=== PATIENT | female | born 1930 | race Caucasian/White ===

== ENCOUNTER 2016-08-24 17:27 | Emergency (ER) | payer MEDICARE ==
--- NOTE | 2016-08-24 17:55 | ED ---
General Adult HPI - General Chief complaint: Fall Stated complaint: FALL, HEAD INJURY Time Seen by Provider: 08/24/16 17:45 Source: patient, RN notes reviewed Mode of arrival: wheelchair Limitations: no limitations - History of Present Illness Initial comments: Patient is an 86-year-old female who presents emergency room today with a chief complaint of a fall that occurred approximately 3 hours ago. Patient does admit that she was getting from the bed to the wheelchair when she slipped falling forward hitting her head. Does admit some abrasions to the forehead and the bridge of the nose. States there is no loss consciousness. Denies any headache. Denies any visual changes. Denies any other complaints or symptoms. Patient denies any recent fever, chills, shortness of breath, chest pain, back pain, abdominal pain, nausea or vomiting, numbness or tingling, dysuria or hematuria, constipation or diarrhea, headaches or visual changes, or any other complaints. - Related Data Home Medications Medication Instructions Recorded Confirmed Aspirin 81 mg PO DAILY 09/01/15 08/24/16 Multivitamins, Thera [Multivitamin] 1 tab PO DAILY 09/01/15 08/24/16 Alvarado-3 Fatty Acids/Fish Oil [Fish 1 cap PO DAILY 09/01/15 08/24/16 Oil 1,000 mg Softgel] amLODIPine [Norvasc] 10 mg PO DAILY 09/01/15 08/24/16 prednisoLONE ACETATE [Pred Forte 1 drop LEFT EYE HS 09/01/15 08/24/16 1%] Artificial Tears-Hypromellose 1 drop RIGHT EYE BID 10/16/15 08/24/16 [Artificial Tear Drops] Calcium Carbonate [Calcium] 600 mg PO DAILY 10/16/15 08/24/16 Cholecalciferol [Vitamin D3] 2,000 unit PO DAILY 10/16/15 08/24/16 DULoxetine HCL [Cymbalta] 20 mg PO DAILY 10/16/15 08/24/16 Docusate [Colace] 100 mg PO Q48H 10/16/15 08/24/16 Metoprolol Succinate (ER) [Toprol 25 mg PO DAILY 10/16/15 08/24/16 XL] Acetaminophen Tab [Tylenol Tab] 325 mg PO Q6H PRN 11/03/15 08/24/16 Carbidopa-Levodopa 25-100 mg 1 tab PO TID 05/14/16 08/24/16 [Sinemet 25-100] Donepezil [Aricept] 5 mg PO HS 05/14/16 08/24/16 Megestrol Acetate 10 mg PO DAILY 05/14/16 08/24/16 Nystatin 100,000 Unit/gm Powd 1 applic TOPICAL DAILY PRN 05/14/16 08/24/16 [Mycostatin Powder] Previous Rx's Medication Instructions Recorded Lisinopril [Zestril] 5 mg PO DAILY #30 tab 09/03/15 Pantoprazole [Protonix] 40 mg PO DAILY tablet. 10/21/15 Bacitracin Oint 28.4 gm TOPICAL BID #1 tube 08/24/16 Allergies Allergy/AdvReac Type Severity Reaction Status Date / Time No Known Allergies Allergy Verified 08/24/16 18:02 Review of Systems ROS Statement: Those systems with pertinent positive or pertinent negative responses have been documented in the HPI. ROS Other: All systems not noted in ROS Statement are negative. Past Medical History Past Medical History: Eye Disorder, Hypertension, Osteoarthritis (OA), Skin Disorder Additional Past Medical History / Comment(s): SPONDYLOSIS, LEFT RETINAL DETATCHMENT, EPIDURAL STEROIDAL INJECTIONS, MITRAL VAVLE PROLAPSE, OSTEOARTRITIS , PSORASIS, holter monitor since 09/22/2015 - PTS DAUGHTER STATES IT WAS PLACED SECONDARY TO FREQ FALLS AND THAT SHE HAD A SHORT BURST OF AFIB WHILE IN THE [facility]CTORS OFFICE. History of Any Multi-Drug Resistant Organisms: None Reported Additional Past Surgical History / Comment(s): LEFT CORNEA TRANSPLANT, ROMAN CATARACT, STEROID INJECTIONS TO LOWER BACK CERVICAL SPINE Past Anesthesia/Blood Transfusion Reactions: No Reported Reaction Past Psychological History: Anxiety, Depression Smoking Status: Former smoker Past Alcohol Use History: None Reported Past Drug Use History: None Reported - Past Family History Father History Unknown: Yes Family Medical History: CVA/TIA, Hypertension General Exam - General Exam Comments Initial Comments: General: The patient is awake and alert, in no distress, and does not appear acutely ill. Eye: Abnormal appearance of the left pupil (not a new finding) extra-ocular movements are intact. No nystagmus. There is normal conjunctiva bilaterally. No signs of icterus. Ears, nose, mouth and throat: There are moist mucous membranes and no oral lesions. Neck: The neck is supple, there is no tenderness or JVD. Cardiovascular: There is a regular rate and rhythm. No murmur, rub or gallop is appreciated. Respiratory: Lungs are clear to auscultation, respirations are non-labored, breath sounds are equal. No wheezes, stridor, rales, or rhonchi. Gastrointestinal: [Soft, non-distended, non-tender abdomen without masses or organomegaly noted. There is no rebound or guarding present. No CVA tenderness. Bowel sounds are unremarkable.] Musculoskeletal: Normal ROM, no tenderness. Strength 5/5. Sensation intact. Pulses equal bilaterally 2+. Neurological: A&O x 3. CN II-XII intact, There are no obvious motor or sensory deficits. Coordination appears grossly intact. Speech is normal. Skin: Mild abrasion to the top of forehead and bridge of her nose. No deep tissue involvement. No bleeding. Psychiatric: Cooperative, appropriate mood & affect, normal judgment. Limitations: no limitations Course Vital Signs 08/24/16 17:34 Temperature 97.9 F Pulse Rate 122 H Respiratory 20 Rate Blood Pressure 190/79 O2 Sat by Pulse 93 L Oximetry Medical Decision Making - Medical Decision Making Patient's CT negative for any acute abnormalities. Results were discussed with the patient. Patient will be discharged home. Small amount of bacitracin placed over the abrasions. Disposition Clinical Impression: Fall, Abrasion Disposition: HOME SELF-CARE Condition: Good Instructions: Abrasion (ED) Additional Instructions: Please use medication as discussed. Please follow-up with family doctor in the next 2 days of symptoms have not improved. Please return to emergency room if the symptoms increase or worsen or for any other concerns. Prescriptions: Bacitracin Oint 28.4 gm TOPICAL BID #1 tube Time of Disposition: 18:25
--- NOTE | 2016-08-24 18:19 | CT ---
EXAMINATION TYPE: CT brain wo con DATE OF EXAM: 08/24/2016 6:13 PM COMPARISON: 10/16/2015 HISTORY: Fall today. CT DLP: 897.20 mGycm Automated exposure control for dose reduction was used. FINDINGS: There is cerebral cortical atrophy. There is patchy hypodensity in the periventricular white matter. There is no mass effect nor midline shift. There is no sign of intracranial hemorrhage. The calvarium is intact. IMPRESSION: Cerebral atrophy and chronic small vessel ischemia. No acute intracranial abnormality. No change.
[2016-08-24] MEDS ORDERED: LISINOPRIL 5 MG TAB PO STA (18:44)
[2016-08-24 18:55] VITALS: BP 185/79; PULSE 60; RESP 18; TEMP 98.2
== END 2016-08-24 18:55 | disposition home or self-care (01) ==
LOC: EC 17:27
DX: S00.91XA Abrasion of unspecified part of head, initial encounter (principal); S00.31XA Abrasion of nose, initial encounter; I10 Essential (primary) hypertension; M19.90 Unspecified osteoarthritis, unspecified site; L40.9 Psoriasis, unspecified; F41.9 Anxiety disorder, unspecified; F32.9 Major depressive disorder, single episode, unspecified; Z87.891 Personal history of nicotine dependence; Z79.82 Long term (current) use of aspirin; W01.10XA Fall on same level from slipping, tripping and stumbling with subsequent striking against unspecified object, initial encounter; Y92.009 Unspecified place in unspecified non-institutional (private) residence as the place of occurrence of the external cause
CPT/HCPCS: 70450; 99284

== ENCOUNTER → 2016-10-07 | Outpatient (CLI) | payer MEDICARE ==
--- NOTE | 2016-10-07 14:29 | CT ---
EXAMINATION TYPE: CT brain wo con DATE OF EXAM: 10/07/2016 2:25 PM COMPARISON: 08/24/2016 HISTORY: amnesia, multiple recent falls CT DLP: [address] of the brain was performed. The ventricles, basal cisterns and sulci overlying the cerebral convexities demonstrate mild enlargem ent. There is no evidence for intracranial hemorrhage or sulcal effacement. There is decreased attenuation about the periventricular white matter and deep white matter of both c erebral hemispheres, compatible with chronic small vessel ischemia. Differential diagnosis does inclu de demyelination. No mass effects are seen.No midline shift. Osseous calvarium is intact. If symptoms persist consider MRI. IMPRESSION: 1. Age related atrophic and chronic small vessel ischemic change without acute intracranial process s een at this time.
== END | disposition home or self-care (01) ==
LOC: RADCTMAIN 13:22
PROVIDERS: ATTEND Internal Medicine Hematology & Oncology
DX: G31.9 Degenerative disease of nervous system, unspecified (principal); I67.82 Cerebral ischemia
CPT/HCPCS: 70450

== ENCOUNTER 2016-11-09 14:10 | Observation (INO) | payer MEDICARE ==
[2016-11-09] MEDS ORDERED: NITROGLYCERIN OINT 1 INCH/GM PACKET TOPICAL STA (14:41)
[2016-11-09] MEDS ORDERED: ASPIRIN 81 MG CHEW PO STA (14:41)
--- NOTE | 2016-11-09 14:43 | ED ---
General Adult HPI - General Chief complaint: Chest Pain Stated complaint: Chest Pain Time Seen by Provider: 11/09/16 14:21 Source: patient, family, RN notes reviewed Mode of arrival: wheelchair Limitations: altered mental status, physical limitation - History of Present Illness Initial comments: Patient is a pleasant 86-year-old female presenting to the emergency department with reported chest discomfort. Daughter received a call today stating patient was complaining of heaviness in her chest. Patient also complained of some yesterday. Patient does not recall this however does have memory problems. Patient is symptom-free at this time. Further history is lacking regarding her symptoms. - Related Data Home Medications Medication Instructions Recorded Confirmed Aspirin 81 mg PO HS 09/01/15 11/09/16 Multivitamins, Thera [Multivitamin 1 tab PO DAILY@1300 09/01/15 11/09/16 (formulary)] Cantril-3 Fatty Acids/Fish Oil [Fish 1 cap PO DAILY 09/01/15 11/09/16 Oil 1,000 mg Softgel] amLODIPine [Norvasc] 10 mg PO DAILY 09/01/15 11/09/16 Artificial Tears-Hypromellose 1 drop RIGHT EYE BID 10/16/15 11/09/16 [Artificial Tear Drops] Calcium Carbonate [Calcium] 600 mg PO DAILY 10/16/15 11/09/16 Cholecalciferol [Vitamin D3] 2,000 unit PO DAILY 10/16/15 11/09/16 DULoxetine HCL [Cymbalta] 20 mg PO DAILY 10/16/15 11/09/16 Docusate [Colace] 100 mg PO Q48H 10/16/15 11/09/16 Metoprolol Succinate (ER) [Toprol 25 mg PO DAILY 10/16/15 11/09/16 XL] Acetaminophen Tab [Tylenol Tab] 325 mg PO Q6H PRN 11/03/15 11/09/16 Carbidopa-Levodopa 25-100 mg 1 tab PO TID 05/14/16 11/09/16 [Sinemet 25-100] Donepezil [Aricept] 5 mg PO HS 05/14/16 11/09/16 Megestrol Acetate 10 mg PO DAILY 05/14/16 11/09/16 Nystatin 100,000 Unit/gm Powd 1 applic TOPICAL DAILY PRN 05/14/16 11/09/16 [Mycostatin Powder] Bacitracin Oint 1 applic TOPICAL BID 11/09/16 11/09/16 Lisinopril [Zestril] 5 mg PO HS 11/09/16 11/09/16 Previous Rx's Medication Instructions Recorded Pantoprazole [Protonix] 40 mg PO DAILY tablet. 10/21/15 Allergies Allergy/AdvReac Type Severity Reaction Status Date / Time No Known Allergies Allergy Verified 11/09/16 14:51 Review of Systems ROS Statement: Those systems with pertinent positive or pertinent negative responses have been documented in the HPI. ROS Other: All systems not noted in ROS Statement are negative. Constitutional: Denies: fever, chills Eyes: Denies: eye pain ENT: Denies: ear pain Respiratory: Denies: cough Cardiovascular: Reports: chest pain Endocrine: Denies: fatigue Gastrointestinal: Denies: abdominal pain Genitourinary: Denies: dysuria Skin: Denies: rash Neurological: Denies: weakness Past Medical History Past Medical History: Eye Disorder, Hypertension, Osteoarthritis (OA), Skin Disorder Additional Past Medical History / Comment(s): SPONDYLOSIS, LEFT RETINAL DETATCHMENT, EPIDURAL STEROIDAL INJECTIONS, MITRAL VAVLE PROLAPSE, OSTEOARTRITIS , PSORASIS, holter monitor since 09/22/2015 - PTS DAUGHTER STATES IT WAS PLACED SECONDARY TO FREQ FALLS AND THAT SHE HAD A SHORT BURST OF AFIB WHILE IN THE [facility]CTORS OFFICE. Parkinsons. History of Any Multi-Drug Resistant Organisms: None Reported Additional Past Surgical History / Comment(s): LEFT CORNEA TRANSPLANT, ROMAN CATARACT, STEROID INJECTIONS TO LOWER BACK CERVICAL SPINE Past Anesthesia/Blood Transfusion Reactions: No Reported Reaction Past Psychological History: Anxiety, Depression Smoking Status: Former smoker Past Alcohol Use History: None Reported Past Drug Use History: None Reported - Past Family History Father History Unknown: Yes Family Medical History: CVA/TIA, Hypertension General Exam Limitations: physical limitation General appearance: alert, in no apparent distress Head exam: Present: atraumatic Eye exam: Present: normal appearance, PERRL ENT exam: Present: normal oropharynx Neck exam: Present: normal inspection Respiratory exam: Present: normal lung sounds bilaterally. Absent: chest wall tenderness Cardiovascular Exam: Present: irregular rhythm Expanded Peripheral pulses: 2+: Radial (R), Radial (L), Dorsalis Pedis (R), Dorsalis Pedis (L) GI/Abdominal exam: Present: soft. Absent: tenderness Extremities exam: Present: normal inspection. Absent: pedal edema, calf tenderness Neurological exam: Present: alert Psychiatric exam: Present: normal affect, normal mood Skin exam: Present: normal color Course Vital Signs 11/09/16 11/09/16 14:13 15:48 Temperature 98.7 F Pulse Rate 63 60 Respiratory 16 16 Rate Blood Pressure 157/70 155/90 O2 Sat by Pulse 100 94 L Oximetry EKG Findings - EKG Comments: EKG Findings:: A. fib with rate of 81. QRS 80. QT 366. QTc 425. Normal axis. Normal QRS. Normal ST-T. Medical Decision Making - Medical Decision Making Patient reevaluated and resting comfortably in bed. Symptoms. This time. Patient and family were updated on results and plan. Case was discussed with practitioner Stacie, working with Dr. calzada, who will admit for Dr. Carney. - Lab Data Result diagrams: 11/09/16 15:15 11/09/16 15:15 Lab Results 11/09/16 11/09/16 11/09/16 Range/Units 15:15 15:15 15:15 WBC 8.6 (3.8-10.6) k/uL RBC 3.50 L (3.80-5.40) m/uL Hgb 11.7 (11.4-16.0) gm/dL Hct 34.5 (34.0-46.0) % MCV 98.4 (80.0-100.0) fL MCH 33.4 (25.0-35.0) pg MCHC 33.9 (31.0-37.0) g/dL RDW 13.0 (11.5-15.5) % Plt Count 186 (150-450) k/uL Neutrophils % 80 % Lymphocytes % 13 % Monocytes % 4 % Eosinophils % 2 % Basophils % 1 % Neutrophils # 6.8 (1.3-7.7) k/uL Lymphocytes # 1.1 (1.0-4.8) k/uL Monocytes # 0.4 (0-1.0) k/uL Eosinophils # 0.1 (0-0.7) k/uL Basophils # 0.1 (0-0.2) k/uL PT (9.0-12.0) sec INR (<1.1) APTT (22.0-30.0) sec Sodium 139 (137-145) mmol/L Potassium 4.8 (3.5-5.1) mmol/L Chloride 109 H (98-107) mmol/L Carbon Dioxide 20 L (22-30) mmol/L Anion Gap 10 mmol/L BUN 22 H (7-17) mg/dL Creatinine 1.12 H (0.52-1.04) mg/dL Est GFR (MDRD) Af Amer 56 (>60 ml/min/1.73 sqM) Est GFR (MDRD) Non-Af 46 (>60 ml/min/1.73 sqM) Glucose 88 (74-99) mg/dL Calcium 9.9 (8.4-10.2) mg/dL Magnesium 2.0 (1.6-2.3) mg/dL Total Bilirubin 0.7 (0.2-1.3) mg/dL AST 26 (14-36) U/L ALT 17 (9-52) U/L Alkaline Phosphatase 59 (38-126) U/L Total Creatine Kinase 58 (30-135) U/L CK-MB (CK-2) 1.2 (0.0-2.4) ng/mL CK-MB (CK-2) Rel Index 2.1 Troponin I <0.012 (0.000-0.034) ng/mL Total Protein 6.9 (6.3-8.2) g/dL Albumin 4.0 (3.5-5.0) g/dL 11/09/16 Range/Units 15:15 WBC (3.8-10.6) k/uL RBC (3.80-5.40) m/uL Hgb (11.4-16.0) gm/dL Hct (34.0-46.0) % MCV (80.0-100.0) fL MCH (25.0-35.0) pg MCHC (31.0-37.0) g/dL RDW (11.5-15.5) % Plt Count (150-450) k/uL Neutrophils % % Lymphocytes % % Monocytes % % Eosinophils % % Basophils % % Neutrophils # (1.3-7.7) k/uL Lymphocytes # (1.0-4.8) k/uL Monocytes # (0-1.0) k/uL Eosinophils # (0-0.7) k/uL Basophils # (0-0.2) k/uL PT 11.7 (9.0-12.0) sec INR 1.2 (<1.1) APTT 20.4 L (22.0-30.0) sec Sodium (137-145) mmol/L Potassium (3.5-5.1) mmol/L Chloride (98-107) mmol/L Carbon Dioxide (22-30) mmol/L Anion Gap mmol/L BUN (7-17) mg/dL Creatinine (0.52-1.04) mg/dL Est GFR (MDRD) Af Amer (>60 ml/min/1.73 sqM) Est GFR (MDRD) Non-Af (>60 ml/min/1.73 sqM) Glucose (74-99) mg/dL Calcium (8.4-10.2) mg/dL Magnesium (1.6-2.3) mg/dL Total Bilirubin (0.2-1.3) mg/dL AST (14-36) U/L ALT (9-52) U/L Alkaline Phosphatase (38-126) U/L Total Creatine Kinase (30-135) U/L CK-MB (CK-2) (0.0-2.4) ng/mL CK-MB (CK-2) Rel Index Troponin I (0.000-0.034) ng/mL Total Protein (6.3-8.2) g/dL Albumin (3.5-5.0) g/dL - Radiology Data Radiology results: image reviewed (Chest x-ray shows no acute process) Disposition Clinical Impression: Chest pain Disposition: ADMITTED IP TO THIS [facility] Referrals: Joe Carney MD [Primary Care Provider] - 1-2 days Time of Disposition: 16:28
[2016-11-09 15:23] LABS: Basophils # (A) 0.1 k/uL (0-0.2); Basophils % (A) 1 %; CH 32.5; CHCM 33.1; Eosinophils # (A) 0.1 k/uL (0-0.7); Eosinophils % (A) 2 %; HCT 34.5 % (34.0-46.0); HDW 2.15; HGB 11.7 gm/dL (11.4-16.0); Luc # (Auto) 0.11; Luc % (Auto) 1; Lymphocytes # (A) 1.1 k/uL (1.0-4.8); Lymphocytes % (A) 13 %; MCH 33.4 pg (25.0-35.0); MCHC 33.9 g/dL (31.0-37.0); MCV 98.4 fL (80.0-100.0); Mean Platelet Volume 6.9; Monocytes # (A) 0.4 k/uL (0-1.0); Monocytes % (A) 4 %; Neutrophils # (A) 6.8 k/uL (1.3-7.7); Neutrophils % (A) 80 %; WBC 8.6 k/uL (3.8-10.6); WBC (Perox) 8.14
[2016-11-09 15:31] LABS: Calcium 9.9 mg/dL (8.4-10.2); Potassium 4.8 mmol/L (3.5-5.1); Total Bilirubin 0.7 mg/dL (0.2-1.3); Total Protein 6.9 g/dL (6.3-8.2)
[2016-11-09 15:43] LABS: INR 1.2 (<1.1); Prothrombin Time 11.7 sec (9.0-12.0)
[2016-11-09 15:46] LABS: Partial Thromboplastin Time 20.4 sec (22.0-30.0)
[2016-11-09 15:48] LABS: Creatine Kinase 58 U/L (30-135)
[2016-11-09 16:01] LABS: Creatine Kinase MB 1.2 ng/mL (0.0-2.4); Troponin I <0.012 ng/mL (0.000-0.034)
--- NOTE | 2016-11-09 16:03 | XR ---
EXAMINATION TYPE: XR chest 2V DATE OF EXAM: 10/16/2015 COMPARISON: 10/24/2015 INDICATION: Chest pain TECHNIQUE: 2 view chest x-ray FINDINGS: The heart size is normal. The pulmonary vasculature is normal. The lungs are clear. IMPRESSION: 1. No acute pulmonary process.
[2016-11-09] MEDS ORDERED: NITROGLYCERIN SL TABS 0.4 MG TAB SUBLINGUAL PRN (16:47)
[2016-11-09] MEDS ORDERED: PANTOPRAZOLE 40 MG TABLET PO STA (20:48)
[2016-11-09] MEDS ORDERED: NYSTATIN 100,000 UNIT/GM OINT 30 GM TUBE TOPICAL PRN (20:53)
[2016-11-09] MEDS ORDERED: METOPROLOL SUCCINATE (ER) 25 MG TAB.ER.24H PO STA (20:56)
[2016-11-09] MEDS ORDERED: DONEPEZIL 5 MG TAB PO SCH (21:00)
[2016-11-09] MEDS ORDERED: DOCUSATE 100 MG CAP PO PRN (21:02)
[2016-11-09] MEDS ORDERED: ACETAMINOPHEN TAB 325 MG TAB PO PRN (21:04)
[2016-11-09 21:50] LABS: Creatine Kinase 57 U/L (30-135)
[2016-11-09 22:03] LABS: Creatine Kinase MB 1.2 ng/mL (0.0-2.4); Troponin I <0.012 ng/mL (0.000-0.034)
[2016-11-09 22:29] VITALS: BMI 20.9
[2016-11-09 22:43] VITALS: RESP 16
[2016-11-09] MEDS: CARBIDOPA-LEVODOPA 25-100 MG 1 EACH TAB PO SCH (23:30)
[2016-11-09] MEDS: NITROGLYCERIN OINT 1 INCH/GM PACKET TOPICAL SCH (23:37)
[2016-11-10 03:19] LABS: Creatine Kinase 63 U/L (30-135)
[2016-11-10 03:32] LABS: Troponin I <0.012 ng/mL (0.000-0.034)
[2016-11-10 03:38] LABS: Cholesterol 156 mg/dL (<200); HDL Cholesterol 52 mg/dL (40-60); Triglycerides 82 mg/dL (<150)
[2016-11-10] MEDS: NITROGLYCERIN OINT 1 INCH/GM PACKET TOPICAL SCH (06:20)
[2016-11-10] MEDS ORDERED: CALCIUM CARBONATE 500 MG CHEWABLE PO SCH ×2 (09:00→12:00)
[2016-11-10] MEDS ORDERED: MEGESTROL 400 MG/10 ML CUP PO SCH (09:00)
[2016-11-10] MEDS ORDERED: amLODIPine 10 MG TAB PO SCH (09:00)
[2016-11-10] MEDS ORDERED: DULoxetine HCL 20 MG CAPSULE.DR PO SCH (09:00)
[2016-11-10] MEDS ORDERED: MEGESTROL 40 MG TAB PO SCH (09:00)
[2016-11-10] MEDS ORDERED: ASPIRIN 325 MG TAB PO SCH (09:00)
[2016-11-10] MEDS ORDERED: BACITRACIN 500 UNIT/GM OINT 28.4 GM TUBE TOPICAL SCH (09:00)
[2016-11-10] MEDS ORDERED: PANTOPRAZOLE 40 MG TABLET PO SCH (09:00)
[2016-11-10] MEDS ORDERED: ARTIFICIAL TEARS-HYPROMELLOSE DROPS 15 ML BTL RIGHT EYE SCH (09:00)
[2016-11-10] MEDS ORDERED: METOPROLOL SUCCINATE (ER) 25 MG TAB.ER.24H PO SCH (09:00)
--- NOTE | 2016-11-10 10:34 | CONS ---
DATE OF CONSULTATION: An 86-year-old female who started complaining of discomfort in the chest on Thursday. The discomfort was off and on and she told her daughter and was brought into the hospital yesterday. Today she feels fine. When she was having the discomfort, she denied any shortness of breath, any dizziness, lightheadedness or palpitations. A 12-lead ECG shows a short burst of atrial tachycardia. No ST segment abnormalities. Medication list includes Zestril, Megestrol, Sinemet, metoprolol succinate, amlodipine. ALLERGIES: No known drug allergies. REVIEW OF SYSTEMS: No fever, chills, rigors. No cough or expectoration. No nausea, vomiting and diarrhea. No hematuria or dysuria. No strokes or seizures. No skin lesions. Past history of hypertension, retinal detachment and short bursts of atrial fibrillation. We have documented a short burst of atrial tachycardia on 12-lead ECG. On examination, her admission blood pressure was 132/53 mmHg and later her blood pressure was normal. This morning, her blood pressure 160/68 mm Hg. she is on antihypertensive therapy. Heart rate is in the 50s and she is on metoprolol. Her temperature is 99 degrees Fahrenheit. Head and neck examination are normal. No JVD. No thyromegaly. HEART SOUNDS: The systolic murmur is audible. Breath sounds are reduced bilaterally, poor air entry due to reduced inspiratory effort but she is comfortable for a respiratory standpoint, there is no respiratory distress. Abdomen is soft, nontender. Extremities are warm. A 12 Lead ECG as above. IMPRESSION: 1. Patient admitted with recurrent chest discomfort with normal cardiac enzymes. No ST segment abnormalities. 2. This is an 86-year-old female with Parkinson's. She also has hypertension and is on antihypertensive therapy. She has short bursts of atrial fibrillation. Suggest baby aspirin and start atorvastatin 20 mg p.o. daily and a 2-D echo and Doppler study. She has not had an acute myocardial infarction. Medical management for chest discomfort and 2-D echo also to assess her pericardium and valvular structures. A chest x-ray did not show any active pulmonary process. Her temperature is 99 degrees Fahrenheit. This will be addressed by her medical doctors.
[2016-11-10] MEDS: CARBIDOPA-LEVODOPA 25-100 MG 1 EACH TAB PO SCH ×2 (10:56→15:49)
[2016-11-10] MEDS ORDERED: CHOLECALCIFEROL 1,000 UNIT TAB PO SCH (12:00)
[2016-11-10] MEDS ORDERED: MULTIVITAMINS, THERA 1 EACH TAB PO SCH (13:00)
[2016-11-10 15:17] VITALS: BP 148/75; PULSE 59; TEMP 99
[2016-11-10] MEDS ORDERED: ISOSORBIDE MONONITRATE ER 30 MG TAB.ER.24H PO SCH (16:00)
[2016-11-10] MEDS ORDERED: LISINOPRIL 5 MG TAB PO SCH (21:00)
--- NOTE | 2016-11-10 22:19 | HP ---
DATE OF ADMISSION: 11/09/2016 PRESENTING COMPLAINT: Chest pain. HISTORY OF PRESENTING COMPLAINT: This is an 86-year-old patient of Dr. Carney whose chronic stable medical conditions include atrial fibrillation, hard of hearing, osteoarthritis, mitral valve prolapse, Parkinson's, dementia, hypertension, depression. Patient is not the best of historians. She states she has had some central chest pressure for 3 to 4 days off and on, not sure if related to exertion, some shortness of breath. No perspiration. No radiation. Variable duration. Patient does use a walker to get about. Hence admitted for the same. REVIEW OF SYSTEMS: CONSTITUTIONAL: Tired. HEENT: Decreased hearing. RESPIRATORY: As above. CARDIOVASCULAR: As above. GASTROINTESTINAL: None. GENITOURINARY: None. MUSCULOSKELETAL: Aches and pains in multiple joints. DERMATOLOGICAL: Some bruising. HEMATOLOGICAL: None. LYMPHATIC: None. PSYCHIATRY: Forgetful. NEUROLOGICAL: Some tremors. PAST HISTORY: 1. Atrial fibrillation. 2. Hard of hearing. 3. Osteoarthritis. 4. Mitral valve prolapse. 5. Psoriasis. 6. Parkinson's disease. 7. Hypertension. 8. Dementia. 9. Depression. PAST SURGICAL HISTORY: 1. Left cornea transplant. 2. Bilateral cataracts. 3. Steroid injection at the lower back and cervical spine. SOCIAL HISTORY: Patient did smoke in the past. Does use a walker. Lives with family. FAMILY HISTORY: Stroke and hypertension. HOME MEDICATIONS: 1. Norvasc 10 mg p.o. daily. 2. Protonix 40 mg p.o. daily. 3. Fish oil 1 capsule p.o. daily. 4. Mycostatin topical application daily p.r.n. 5. Multivitamin 1 tablet p.o. daily. 6. Toprol XL 25 mg p.o. daily. 7. Megestrol 10 mg p.o. daily. 8. Zestril ( ) mg p.o. at bedtime. 9. Aricept 5 mg p.o. at bedtime. 10. Colace 100 mg p.o. q.48 hours. 11. Cymbalta 20 mg p.o. daily. 12. Vitamin D3 2000 units p.o. daily. 13. Sinemet 25/100 one tablet p.o. t.i.d. 14. Calcium 600 mg p.o. daily. 15. Bacitracin application topically b.i.d. 16. Aspirin 81 mg at bedtime. 17. Artificial Tears 1 drop to right eye b.i.d. PHYSICAL EXAMINATION: VITAL SIGNS ON PRESENTATION: Temperature 98.7, pulse 63, respiration 16, blood pressure 127/70, pulse ox 100% on room air. GENERAL APPEARANCE: Average build. Lying in bed. Not in distress. EYES: Pupils equal. Conjunctivae normal. HEENT: External appearance of nose and ears normal. Oral cavity normal. NECK: JVD not raised. Mass not palpable. RESPIRATORY: Effort normal. Lungs are clear. CARDIOVASCULAR: First and second sounds normal. No edema. ABDOMEN: Soft, non-tender. Liver and spleen not palpable. LYMPHATIC: No lymph node palpable in neck or axillae. PSYCHIATRY: Alert and oriented. Mood and affect slightly flat. NEUROLOGICAL: Slow to move. MUSCULOSKELETAL: Evidence of osteoarthritis in multiple joints, including the hands and knees. INVESTIGATIONS: White count 8.6, hemoglobin 11.7. Potassium 4.8. BUN 22, creatinine 1.12. Troponin x3 negative. EKG showing atrial fibrillation, rate controlled. ASSESSMENT: 1. Chest pain in an elderly patient whose cardiac risk factors include her age, hypertension. Pain is somewhat atypical, but cannot rule out underlying coronary artery disease. 2. Persistent atrial fibrillation, rate controlled. 3. Hard of hearing. 4. Primary osteoarthritis in multiple joints bilaterally. 5. Idiopathic Parkinson's disease. 6. Essential hypertension. 7. Alzheimer's dementia, late-onset type. PLAN: Cardiology is consulted. Home medications are resumed. Will give Lovenox for DVT prophylaxis. Blood pressure medications will be adjusted. Care was discussed with the patient. Will also add some nitrates.
[2016-11-11] MEDS ORDERED: ASPIRIN 81 MG CHEW PO SCH (09:00)
[2016-11-11] MEDS ORDERED: ATORVASTATIN 20 MG TAB PO SCH (09:00)
--- NOTE | 2016-12-12 20:03 | DS ---
DATE OF ADMISSION: 11/09/2016 DATE OF DISCHARGE: 11/10/2016 FINAL DIAGNOSES: 1. Left-anterior chest pain; could be musculoskeletal. 2. Persistent atrial fibrillation. 3. Hard of hearing. 4. Primary osteoarthritis of multiple joints bilaterally. 5. Idiopathic Parkinson's disease. 6. Essential hypertension. 7. Alzheimer's dementia, late-onset type. CONSULTATION: Dr. Ruben Servin. HOSPITAL COURSE: This patient presented with chest pain. Troponins were negative. Seen by Dr. Servin. Adjusted some medications. Otherwise doing okay to be discharged./ On exam, LUNGS: Slightly decreased breath sounds. CARDIOVASCULAR: First and second sounds normal. DISCHARGE MEDICATIONS: 1. Aspirin 81 mg q.h.s. 2. Multivitamin 1 tablet p.o. daily. 3. Fish oil 1000 mg p.o. daily. 4. Norvasc 10 mg daily. 5. Artificial tears one drop to right eye b.i.d. 6. Calcium ( ) milligrams p.o. daily. 7. Vitamin D3 2000 units p.o. daily. 8. Cymbalta 20 mg p.o. daily. 9. Colace 100 mg q.48 hours. 10. Toprol XL ER 25 mg daily. 11. Protonix 40 mg p.o. daily. 12. Tylenol 325 p.o. q6h p.r.n. 13. Sinemet 25/100, 1 tablet p.o. t.i.d. 14. Aricept 5 mg p.o. q.h.s. 15. Megestrol 10 mg p.o. daily. 16. Zestril 5 mg p.o. q.h.s. 17. Flagyl 500 mg p.o. q.i.d. Follow up with Dr. Servin in one week. Dr. Abdi in [address] Carney in two days.
== END 2016-11-10 19:25 | disposition home or self-care (01) ==
LOC: EC 14:10 → 3OBS 16:48
PROVIDERS: ADMIT Hospitalist; ATTEND Hospitalist
DX: R07.89 Other chest pain (principal); R41.82 Altered mental status, unspecified; I10 Essential (primary) hypertension; M15.9 Polyosteoarthritis, unspecified; M47.9 Spondylosis, unspecified; H33.22 Serous retinal detachment, left eye; L40.9 Psoriasis, unspecified; I48.1 Persistent atrial fibrillation; F32.9 Major depressive disorder, single episode, unspecified; G20 Parkinson's disease; I47.1 Supraventricular tachycardia; H91.90 Unspecified hearing loss, unspecified ear; G30.9 Alzheimer's disease, unspecified; F02.80 Dementia in other diseases classified elsewhere, unspecified severity, without behavioral disturbance, psychotic disturbance, mood disturbance, and anxiety; F41.9 Anxiety disorder, unspecified; Z79.899 Other long term (current) drug therapy; Z79.82 Long term (current) use of aspirin; Z82.49 Family history of ischemic heart disease and other diseases of the circulatory system; Z94.7 Corneal transplant status; Z91.81 History of falling; Z87.891 Personal history of nicotine dependence
CPT/HCPCS: 99285; 36415; 93005; 80061; 80053; 82550 ×2; 82553 ×2; 83735; 84484 ×2; 85025; 85610; 85730; 71020; G0378 ×2; S0179

== ENCOUNTER 2016-11-28 12:07 | Emergency (ER) | payer MEDICARE ==
[2016-11-28 12:16] VITALS: TEMP 98.2
[2016-11-28] MEDS ORDERED: SODIUM CHLORIDE 0.9% 1,000 ML IV STA (12:39)
--- NOTE | 2016-11-28 12:43 | ED ---
General Adult HPI - General Chief complaint: Recheck/Abnormal Lab/Rx Stated complaint: Positive C-Diff Time Seen by Provider: 11/28/16 12:32 Source: patient, family, RN notes reviewed Mode of arrival: wheelchair Limitations: no limitations, altered mental status - History of Present Illness Initial comments: Patient is a pleasant 86-year-old female presenting to the emergency Department with generalized weakness. Onset of symptoms was a few days ago. Patient has been having diarrhea for a few days, several times per day. No nausea or vomiting. No abdominal pain. Decreased appetite. Patient is requiring increased assistance, more than what is available at her assisted living. Patient states at [facility]. No fever. Patient was recently treated with antibiotics for urinary tract infection. Patient has a positive C. diff test results from yesterday. - Related Data Home Medications Medication Instructions Recorded Confirmed Aspirin 81 mg PO HS 09/01/15 11/28/16 Multivitamins, Thera [Multivitamin 1 tab PO DAILY@1300 09/01/15 11/28/16 (formulary)] [employer]-3 Fatty Acids/Fish Oil [Fish 1 cap PO DAILY@1300 09/01/15 11/28/16 Oil 1,000 mg Softgel] amLODIPine [Norvasc] 10 mg PO DAILY 09/01/15 11/28/16 Artificial Tears-Hypromellose 1 drop RIGHT EYE BID 10/16/15 11/28/16 [Artificial Tear Drops] Calcium Carbonate [Calcium] 600 mg PO DAILY 10/16/15 11/28/16 Cholecalciferol [Vitamin D3] 2,000 unit PO DAILY 10/16/15 11/28/16 DULoxetine HCL [Cymbalta] 20 mg PO DAILY 10/16/15 11/28/16 Docusate [Colace] 100 mg PO Q48H 10/16/15 11/28/16 Metoprolol Succinate (ER) [Toprol 25 mg PO DAILY 10/16/15 11/28/16 XL] Acetaminophen Tab [Tylenol] 325 mg PO Q6H PRN 11/03/15 11/28/16 Carbidopa-Levodopa 25-100 mg 1 tab PO TID@0730,1300,1930 05/14/16 11/28/16 [Sinemet 25-100 mg] Donepezil [Aricept] 5 mg PO HS 05/14/16 11/28/16 Megestrol Acetate 10 mg PO DAILY 05/14/16 11/28/16 Lisinopril [Zestril] 5 mg PO HS 11/09/16 11/28/16 Previous Rx's Medication Instructions Recorded Pantoprazole [Protonix] 40 mg PO DAILY tablet. 10/21/15 metroNIDAZOLE [Flagyl] 500 mg PO QID #56 tab 11/28/16 Allergies Allergy/AdvReac Type Severity Reaction Status Date / Time No Known Allergies Allergy Verified 11/28/16 13:56 Review of Systems ROS Statement: Those systems with pertinent positive or pertinent negative responses have been documented in the HPI. ROS Other: All systems not noted in ROS Statement are negative. Constitutional: Denies: fever Eyes: Denies: eye pain ENT: Denies: ear pain Respiratory: Denies: dyspnea Cardiovascular: Denies: chest pain Endocrine: Denies: fatigue Gastrointestinal: Reports: diarrhea. Denies: abdominal pain Genitourinary: Denies: urgency Musculoskeletal: Denies: as per HPI Skin: Denies: rash Neurological: Reports: weakness (Generalized) Past Medical History Past Medical History: Atrial Fibrillation, Eye Disorder, Hearing Disorder / Deafness, Hypertension, Memory Impairment, Neurologic Disorder, Osteoarthritis ( OA), Skin Disorder Additional Past Medical History / Comment(s): SPONDYLOSIS, LEFT RETINAL DETATCHMENT, EPIDURAL STEROIDAL INJECTIONS, MITRAL VAVLE PROLAPSE, OSTEOARTRITIS , PSORASIS, holter monitor since 09/22/2015 - PTS DAUGHTER STATES IT WAS PLACED SECONDARY TO FREQ FALLS AND THAT SHE HAD A SHORT BURST OF AFIB WHILE IN THE DOCTORS OFFICE. Parkinsons. History of Any Multi-Drug Resistant Organisms: None Reported Additional Past Surgical History / Comment(s): LEFT CORNEA TRANSPLANT, ROMAN CATARACT, STEROID INJECTIONS TO LOWER BACK CERVICAL SPINE Past Anesthesia/Blood Transfusion Reactions: No Reported Reaction Past Psychological History: Anxiety, Depression Smoking Status: Former smoker Past Alcohol Use History: None Reported Past Drug Use History: None Reported - Past Family History Father History Unknown: Yes Family Medical History: CVA/TIA, Hypertension General Exam Limitations: no limitations, altered mental status General appearance: alert, in no apparent distress Head exam: Present: atraumatic Eye exam: Present: normal appearance, PERRL ENT exam: Present: normal oropharynx Neck exam: Present: normal inspection Respiratory exam: Present: normal lung sounds bilaterally Cardiovascular Exam: Present: regular rate, normal rhythm GI/Abdominal exam: Present: soft. Absent: tenderness Extremities exam: Present: normal inspection Neurological exam: Present: alert, CN II-XII intact. Absent: motor sensory deficit Expanded Motor strength exam: RUE: 5, LUE: 5, RLE: 5, LLE: 5 Psychiatric exam: Present: normal affect, normal mood Skin exam: Present: normal color Course Vital Signs 11/28/16 11/28/16 12:14 15:05 Temperature 98.2 F Pulse Rate 60 62 Respiratory 18 16 Rate Blood Pressure 189/80 179/76 O2 Sat by Pulse 99 100 Oximetry EKG Findings - EKG Comments: EKG Findings:: Normal sinus rhythm 62. Normal intervals. Left axis. LVH criteria. No acute ST change. Medical Decision Making - Medical Decision Making Patient reexamined and resting comfortably in bed. Daughter would like patient to be discharged and does not feel she needs to be in the hospital. Daughter did refuse computed tomography scan of the brain. She feels it is unnecessary. She feels her symptoms are likely related to C. diff and would like treatment for this. Daughter is comfortable with patient's ability to care for self at [facility] and will assist if needed. Patient is agreeable with this. Urine shows possible infection. Patient has recently finished antibiotics. Patient is started on Flagyl however it is unclear if this will cover potential urinary tract infection. Culture is ordered. Daughter does not want additional antibiotics at this time and will follow-up with primary care physician B in the week for culture results. - Lab Data Result diagrams: 11/28/16 13:00 11/28/16 13:00 Lab Results 11/28/16 11/28/16 11/28/16 Range/Units 13:00 13:00 13:00 WBC 9.5 (3.8-10.6) k/uL RBC 3.63 L (3.80-5.40) m/uL Hgb 11.9 (11.4-16.0) gm/dL Hct 36.3 (34.0-46.0) % MCV 100.0 (80.0-100.0) fL MCH 32.8 (25.0-35.0) pg MCHC 32.8 (31.0-37.0) g/dL RDW 13.3 (11.5-15.5) % Plt Count 180 (150-450) k/uL Neutrophils % 82 % Lymphocytes % 11 % Monocytes % 4 % Eosinophils % 1 % Basophils % 1 % Neutrophils # 7.8 H (1.3-7.7) k/uL Lymphocytes # 1.1 (1.0-4.8) k/uL Monocytes # 0.4 (0-1.0) k/uL Eosinophils # 0.1 (0-0.7) k/uL Basophils # 0.1 (0-0.2) k/uL PT (9.0-12.0) sec INR (<1.1) APTT (22.0-30.0) sec Sodium 141 (137-145) mmol/L Potassium 4.7 (3.5-5.1) mmol/L Chloride 108 H (98-107) mmol/L Carbon Dioxide 23 (22-30) mmol/L Anion Gap 10 mmol/L BUN 20 H (7-17) mg/dL Creatinine 1.00 (0.52-1.04) mg/dL Est GFR (MDRD) Af Amer >60 (>60 ml/min/1.73 sqM) Est GFR (MDRD) Non-Af 53 (>60 ml/min/1.73 sqM) Glucose 93 (74-99) mg/dL Calcium 10.3 H (8.4-10.2) mg/dL Phosphorus 3.7 (2.5-4.5) mg/dL Magnesium 2.2 (1.6-2.3) mg/dL Total Bilirubin 0.7 (0.2-1.3) mg/dL AST 26 (14-36) U/L ALT 23 (9-52) U/L Alkaline Phosphatase 71 (38-126) U/L Total Creatine Kinase 56 (30-135) U/L CK-MB (CK-2) 0.9 (0.0-2.4) ng/mL CK-MB (CK-2) Rel Index 1.6 Troponin I <0.012 (0.000-0.034) ng/mL Total Protein 7.0 (6.3-8.2) g/dL Albumin 4.0 (3.5-5.0) g/dL TSH 2.110 (0.465-4.680) mIU/L Free T4 1.28 (0.78-2.19) ng/dL Free T3 pg/mL 4.0 (2.8-5.3) pg/ml Urine Color Urine Appearance (Clear) Urine pH (5.0-8.0) Ur Specific Paulina (1.001-1.035) Urine Protein (Negative) Urine Glucose (UA) (Negative) Urine Ketones (Negative) Urine Blood (Negative) Urine Nitrite (Negative) Urine Bilirubin (Negative) Urine Urobilinogen (<2.0) mg/dL Ur Leukocyte Esterase (Negative) Urine RBC (0-5) /hpf Urine WBC (0-5) /hpf Urine WBC Clumps (None) /hpf Ur Squamous Epith Cells (0-4) /hpf Urine Bacteria (None) /hpf 11/28/16 11/28/16 Range/Units 13:00 14:50 WBC (3.8-10.6) k/uL RBC (3.80-5.40) m/uL Hgb (11.4-16.0) gm/dL Hct (34.0-46.0) % MCV (80.0-100.0) fL MCH (25.0-35.0) pg MCHC (31.0-37.0) g/dL RDW (11.5-15.5) % Plt Count (150-450) k/uL Neutrophils % % Lymphocytes % % Monocytes % % Eosinophils % % Basophils % % Neutrophils # (1.3-7.7) k/uL Lymphocytes # (1.0-4.8) k/uL Monocytes # (0-1.0) k/uL Eosinophils # (0-0.7) k/uL Basophils # (0-0.2) k/uL PT 11.2 (9.0-12.0) sec INR 1.1 (<1.1) APTT 18.8 L (22.0-30.0) sec Sodium (137-145) mmol/L Potassium (3.5-5.1) mmol/L Chloride (98-107) mmol/L Carbon Dioxide (22-30) mmol/L Anion Gap mmol/L BUN (7-17) mg/dL Creatinine (0.52-1.04) mg/dL Est GFR (MDRD) Af Amer (>60 ml/min/1.73 sqM) Est GFR (MDRD) Non-Af (>60 ml/min/1.73 sqM) Glucose (74-99) mg/dL Calcium (8.4-10.2) mg/dL Phosphorus (2.5-4.5) mg/dL Magnesium (1.6-2.3) mg/dL Total Bilirubin (0.2-1.3) mg/dL AST (14-36) U/L ALT (9-52) U/L Alkaline Phosphatase (38-126) U/L Total Creatine Kinase (30-135) U/L CK-MB (CK-2) (0.0-2.4) ng/mL CK-MB (CK-2) Rel Index Troponin I (0.000-0.034) ng/mL Total Protein (6.3-8.2) g/dL Albumin (3.5-5.0) g/dL TSH (0.465-4.680) mIU/L Free T4 (0.78-2.19) ng/dL Free T3 pg/mL (2.8-5.3) pg/ml Urine Color Yellow Urine Appearance Cloudy H (Clear) Urine pH 6.0 (5.0-8.0) Ur Specific Paulina 1.011 (1.001-1.035) Urine Protein Negative (Negative) Urine Glucose (UA) Negative (Negative) Urine Ketones Negative (Negative) Urine Blood Small H (Negative) Urine Nitrite Negative (Negative) Urine Bilirubin Negative (Negative) Urine Urobilinogen <2.0 (<2.0) mg/dL Ur Leukocyte Esterase Large H (Negative) Urine RBC 3 (0-5) /hpf Urine WBC 118 H (0-5) /hpf Urine WBC Clumps Occasional H (None) /hpf Ur Squamous Epith Cells <1 (0-4) /hpf Urine Bacteria Many H (None) /hpf Disposition Clinical Impression: Clostridium difficile diarrhea Disposition: HOME SELF-CARE Condition: Stable Instructions: Weakness (ED), Clostridium Difficile Infection (ED) Additional Instructions: Please follow-up with primary care physician in the beginning of the week. Return for increased weakness, unable take care of self, fevers, abdominal pain , uncontrolled diarrhea, worsening symptoms or other concerns. Please have primary care physician check urine culture results on Thursday. Prescriptions: metroNIDAZOLE [Flagyl] 500 mg PO QID #56 tab Referrals: Joe Carney MD [Primary Care Provider] - 1-2 days
[2016-11-28 13:16] LABS: Basophils # (A) 0.1 k/uL (0-0.2); Basophils % (A) 1 %; CH 32.9; Eosinophils # (A) 0.1 k/uL (0-0.7); Eosinophils % (A) 1 %; HCT 36.3 % (34.0-46.0); HDW 2.16; HGB 11.9 gm/dL (11.4-16.0); Luc # (Auto) 0.09; Luc % (Auto) 1; Lymphocytes # (A) 1.1 k/uL (1.0-4.8); Lymphocytes % (A) 11 %; MCH 32.8 pg (25.0-35.0); MCHC 32.8 g/dL (31.0-37.0); Mean Platelet Volume 6.8; Monocytes # (A) 0.4 k/uL (0-1.0); Monocytes % (A) 4 %; Neutrophils # (A) 7.8 k/uL (1.3-7.7); Neutrophils % (A) 82 %; RBC 3.63 m/uL (3.80-5.40); RDW 13.3 % (11.5-15.5); WBC 9.5 k/uL (3.8-10.6); WBC (Perox) 9.93
[2016-11-28 13:27] LABS: Chloride 108 mmol/L (98-107); Glucose 93 mg/dL (74-99); Potassium 4.7 mmol/L (3.5-5.1); Sodium 141 mmol/L (137-145)
[2016-11-28 13:28] LABS: ALT 23 U/L (9-52); AST 26 U/L (14-36); Alkaline Phosphatase 71 U/L (38-126); Anion Gap 10 mmol/L; Blood Urea Nitrogen 20 mg/dL (7-17); Calcium 10.3 mg/dL (8.4-10.2); Carbon Dioxide 23 mmol/L (22-30); Magnesium 2.2 mg/dL (1.6-2.3); Non-African American GFR(MDRD) 53 (>60 ml/min/1.73 sqM); Phosphorous 3.7 mg/dL (2.5-4.5); Total Bilirubin 0.7 mg/dL (0.2-1.3)
--- NOTE | 2016-11-28 13:34 | XR ---
EXAMINATION TYPE: XR chest 2V DATE OF EXAM: 11/28/2016 COMPARISON: Chest x-ray November 09, 2016. HISTORY: Weakness. Clear is for antibiotic treatment for C. difficile. TECHNIQUE: Frontal and lateral views of the chest are obtained. FINDINGS: There is no focal air space opacity, pleural effusion, or pneumothorax seen. The cardiac silhouette size is enlarged with atherosclerotic and ectatic thoracic aorta. The osseous structures are demineralized. Underlying scoliosis in the upper lumbar spine is redemonstrated. IMPRESSION: Cardiomegaly without acute pulmonary process. No significant change from prior.
[2016-11-28 13:36] LABS: INR 1.1 (<1.1); Prothrombin Time 11.2 sec (9.0-12.0)
[2016-11-28 13:41] LABS: Creatine Kinase 56 U/L (30-135)
[2016-11-28 13:45] LABS: Partial Thromboplastin Time 18.8 sec (22.0-30.0)
[2016-11-28 13:52] LABS: Creatine Kinase MB 0.9 ng/mL (0.0-2.4); Troponin I <0.012 ng/mL (0.000-0.034)
[2016-11-28 15:32] LABS: Appearance,Urine Cloudy (Clear); Bacteria,Urine Many /hpf; Bilirubin,Urine Negative (Negative); Glucose,Urine (UA) Negative (Negative); Ketones,Urine Negative (Negative); Leukocyte Esterase,Urine Large (Negative); Nitrite,Urine Negative (Negative); Particle Count 29874; Protein,Urine Negative (Negative); RBC,Urine 3 /hpf (0-5); Specific Gravity,Urine 1.011 (1.001-1.035); Squamous Epithelial Cell,Urine <1 /hpf (0-4); UA Billing (MACRO vs. MICRO) MICRO; Urobilinogen,Urine <2.0 mg/dL (<2.0); WBC,Urine 118 /hpf (0-5)
[2016-11-28 17:02] VITALS: PULSE 58; RESP 18
[2016-11-28 17:03] VITALS: BP 173/80
== END 2016-11-28 17:15 | disposition home or self-care (01) ==
LOC: EC 12:07
DX: A04.7 Enterocolitis due to Clostridium difficile (principal); I10 Essential (primary) hypertension; M19.90 Unspecified osteoarthritis, unspecified site; G20 Parkinson's disease; F32.9 Major depressive disorder, single episode, unspecified; F41.9 Anxiety disorder, unspecified; Z87.891 Personal history of nicotine dependence; Z79.82 Long term (current) use of aspirin; Z79.899 Other long term (current) drug therapy
CPT/HCPCS: 36415; 71020; 80053; 81001; 82550; 82553; 83735; 84100; 84439; 84443; 84481; 84484; 85025; 85610; 85730; 93005; 96360; 96361; 99284